=== PATIENT | female | born 1995 | race Caucasian/White ===

== ENCOUNTER 2016-11-08 12:55 | Emergency (ER) | payer BC ==
[2016-11-08 14:00] VITALS: BP 134/76
--- NOTE | 2016-11-08 14:15 | UC ---
Skin Complaint HPI - HPI Summary HPI Summary: Patch of skin with bumps that are sometimes itchy on R upper arm starting 2-3 weeks ago. Says it is exactly where she treated a ringworm infection about 2 years ago. No hx of varicella disease. Denies pain, swelling, or drainage. Not currently itchy, but feels it is "looking worse." - History of Current Complaint Chief Complaint: UCSkin Time Seen by Provider: 11/08/16 13:57 Stated Complaint: RASH, RIGHT UPPER ARM Hx Obtained From: Patient Hx Last Menstrual Period: 10/07/16 ?: No Onset/Duration: Gradual Onset, Lasting Weeks Timing: Constant Onset Severity: Mild Current Severity: Mild Location: Discrete Character: Redness, Raised Aggravating: Nothing Alleviating: Nothing Associated Signs & Symptoms: Positive: Rash - Allergy/Home Medications Allergies/Adverse Reactions: Allergies Allergy/AdvReac Type Severity Reaction Status Date / Time No Known Allergies Allergy Verified 11/08/16 13:55 Review of Systems Constitutional: Negative Skin: Rash Eyes: Negative ENT: Negative Respiratory: Negative Cardiovascular: Negative Gastrointestinal: Negative Genitourinary: Negative Motor: Negative Neurovascular: Negative Musculoskeletal: Negative Neurological: Negative Psychological: Negative All Other Systems Reviewed And Are Negative: Yes PMH/Surg Hx/FS Hx/Imm Hx Previously Healthy: Yes - hx eczema - Surgical History Surgical History: None - Family History Known Family History: Positive: Respiratory Disease - asthma - Social History Alcohol Use: Occasionally Substance Use Type: None Smoking Status (MU): Never Smoked Tobacco - Immunization History Most Recent Influenza Vaccination: not this season Vaccination Up to Date: Yes Physical Exam Triage Information Reviewed: Yes Appearance: Well-Appearing, No Pain Distress, Well-Nourished Vital Signs: Initial Vital Signs Temp 98.3 F 11/08/16 13:56 Pulse 78 11/08/16 13:56 Resp 14 11/08/16 13:56 BP 134/76 11/08/16 13:56 Pulse Ox 100 11/08/16 13:56 Vital Signs Reviewed: Yes Eye Exam: Normal Eyes: Positive: Conjunctiva Clear ENT Exam: Normal ENT: Positive: Normal ENT inspection, Hearing grossly normal, Pharynx normal, TMs normal Neck exam: Normal Respiratory Exam: Normal Respiratory: Positive: Chest non-tender, Lungs clear, Normal breath sounds, No respiratory distress, No accessory muscle use Cardiovascular Exam: Normal Cardiovascular: Positive: RRR, No Murmur Musculoskeletal Exam: Normal Neurological Exam: Normal Neurological: Positive: Alert Psychological Exam: Normal Skin Exam: Other - grouped papules with scabbing and excoriation on R upper outer arm Course/Dx - Diagnoses Provider Diagnoses: eczema. elevated blood pressure due to discomfort Discharge - Discharge Plan Condition: Stable Disposition: HOME Prescriptions: Triamcinolone 0.5% CREAM(NF) [Triamcinolone 0.5% CREAM*] 1 applic TOPICAL BID # 15 gm Patient Education Materials: Eczema (ED) Referrals: Nabila Mallory [Primary Care Provider] - Additional Instructions: As we discussed, your rash does not have a particular appearance, but as long as it improves with steroids no further evaluation or treatment is necessary. Do not use the steroid cream for longer than 2 weeks in a row.
== END 2016-11-08 14:16 | disposition home or self-care (01) ==
LOC: UCCORT 12:55
DX: L30.9 Dermatitis, unspecified (principal); R03.0 Elevated blood-pressure reading, without diagnosis of hypertension
CPT/HCPCS: 99202; G0463